=== PATIENT | male | born 1955 | race Caucasian/White ===

== ENCOUNTER → 2019-10-13 09:41 | Outpatient (BNVA) | payer BC, SELFPAY | PROVIDERS: PCP Registered Nurse; Visit Provider Registered Nurse | DX: E11.9 Type 2 diabetes mellitus without complications (principal); I10 Essential (primary) hypertension; E78.5 Hyperlipidemia, unspecified; E78.2 Mixed hyperlipidemia | CPT/HCPCS: 80053; 80061; 82044; 83721; 85025 ==

== ENCOUNTER → 2019-10-23 10:39 | Outpatient (BNVA) | payer BC, SELFPAY | PROVIDERS: PCP Registered Nurse; Visit Provider Nurse Practitioner Family | DX: E78.5 Hyperlipidemia, unspecified (principal); E11.9 Type 2 diabetes mellitus without complications; E78.2 Mixed hyperlipidemia | CPT/HCPCS: 83036 ==

== ENCOUNTER → 2020-04-08 09:32 | Outpatient (BNVA) | payer BC, SELFPAY | PROVIDERS: PCP Registered Nurse; Visit Provider Nurse Practitioner Family | DX: I10 Essential (primary) hypertension (principal); E11.9 Type 2 diabetes mellitus without complications; E78.5 Hyperlipidemia, unspecified | CPT/HCPCS: 80061; 83036; 83721 ==

== ENCOUNTER → 2020-07-18 10:02 | Outpatient (BNVA) | payer BC, SELFPAY | PROVIDERS: PCP Registered Nurse; Visit Provider Nurse Practitioner Family | DX: E78.5 Hyperlipidemia, unspecified (principal); I10 Essential (primary) hypertension; E11.9 Type 2 diabetes mellitus without complications; F32.9 Major depressive disorder, single episode, unspecified | CPT/HCPCS: 80053; 80061; 82043; 83036 ==

== ENCOUNTER → 2020-10-24 09:58 | Outpatient (BNVA) | payer BC, SELFPAY | PROVIDERS: PCP Registered Nurse; Visit Provider Nurse Practitioner Family | DX: E11.9 Type 2 diabetes mellitus without complications (principal) | CPT/HCPCS: 82043; 83036 ==

== ENCOUNTER → 2021-05-02 11:00 | Outpatient (BNVA) | payer BC, SELFPAY | PROVIDERS: PCP Nurse Practitioner Family; Visit Provider Nurse Practitioner Family | DX: E11.9 Type 2 diabetes mellitus without complications (principal); E78.5 Hyperlipidemia, unspecified; I10 Essential (primary) hypertension | CPT/HCPCS: 80053; 80061; 83036 ==

== ENCOUNTER → 2021-08-01 09:19 | Outpatient (BNVA) | payer BC, SELFPAY | PROVIDERS: PCP Nurse Practitioner Family; Visit Provider Nurse Practitioner Family | DX: E11.9 Type 2 diabetes mellitus without complications (principal); E78.5 Hyperlipidemia, unspecified; I10 Essential (primary) hypertension | CPT/HCPCS: 80053; 80061; 82043; 83036 ==

== ENCOUNTER → 2022-03-06 09:38 | Outpatient (BNVA) | payer BC, SELFPAY | PROVIDERS: PCP Nurse Practitioner Family; Visit Provider Nurse Practitioner Family | DX: E11.9 Type 2 diabetes mellitus without complications (principal); I10 Essential (primary) hypertension; E78.2 Mixed hyperlipidemia; R53.83 Other fatigue | CPT/HCPCS: 80053; 80061; 83036; 83721; 85025 ==

== ENCOUNTER → 2022-07-10 09:30 | Outpatient (BNVA) | payer BC, SELFPAY | PROVIDERS: PCP Nurse Practitioner Family; Visit Provider Nurse Practitioner Family | DX: I10 Essential (primary) hypertension (principal); E11.9 Type 2 diabetes mellitus without complications | CPT/HCPCS: 80053; 80061; 83036 ==

== ENCOUNTER → 2022-09-21 10:52 | Outpatient (BNVA) | payer BC, SELFPAY | PROVIDERS: PCP Nurse Practitioner Family; Visit Provider Nurse Practitioner Family | DX: M10.9 Gout, unspecified (principal) | CPT/HCPCS: 84550 ==

== ENCOUNTER → 2022-11-05 10:04 | Outpatient (BNVA) | payer BC, SELFPAY | PROVIDERS: PCP Nurse Practitioner Family; Visit Provider Nurse Practitioner Family | DX: M10.9 Gout, unspecified (principal) | CPT/HCPCS: 84550 ==

== ENCOUNTER 2022-12-09 12:01 | Outpatient (CLI) | payer BC, SELFPAY ==
--- NOTE | 2022-12-09 12:15 | US_ITS ---
WS: [id number] INDICATION: Palpable lump posterior LEFT neck TECHNIQUE: Ultrasound soft tissue area of concern FINDINGS: Ultrasound soft tissue area of concern posterior LEFT neck. Slightly heterogeneous tissue i n the area of concern posterior LEFT neck most compatible with benign lipoma. No other suspicious cys tic or solid lesions. US/US soft tissue head neck [id number] IMPRESSION: Suspected lipoma in the area of concern. This measures approximatel y 7.5 x 2.6 x 7.4 cm. No other suspicious findings.
== END 2022-12-09 12:02 | disposition home or self-care (01) ==
PROVIDERS: PCP Nurse Practitioner Family; Visit Provider Nurse Practitioner Family
DX: M79.89 Other specified soft tissue disorders (principal)
CPT/HCPCS: 76536

== ENCOUNTER → 2022-12-18 09:53 | Outpatient (BNVA) | payer BC, SELFPAY | PROVIDERS: PCP Nurse Practitioner Family; Visit Provider Nurse Practitioner Family | DX: E78.5 Hyperlipidemia, unspecified (principal); E11.9 Type 2 diabetes mellitus without complications; I10 Essential (primary) hypertension; M79.89 Other specified soft tissue disorders; E78.2 Mixed hyperlipidemia | CPT/HCPCS: 80053; 80061; 83036 ==

== ENCOUNTER → 2023-02-26 10:16 | Outpatient (BNVA) | payer BC, SELFPAY | PROVIDERS: PCP Nurse Practitioner Family; Visit Provider Nurse Practitioner Family | DX: E11.9 Type 2 diabetes mellitus without complications (principal) | CPT/HCPCS: 83036 ==

== ENCOUNTER 2023-06-23 06:58 | Day surgery (SDC) | payer BC, SELFPAY ==
[2023-06-23] MEDS: sodium chloride 0.9% 1,000 ML 30 ML IV (07:25)
[2023-06-23 07:29] VITALS: BP 150/69; PULSE 81; RESP 18; TEMP 36.4; O2SAT 99; BMI 34.2
[2023-06-23 07:31] LABS: Glucose Point of Care 172 mg/dL (70-110)
--- NOTE | 2023-06-23 07:50 | ANES.PREANE2 ---
Pre-Anesthetic Assessment Height/Weight: Height 1.85 m Weight 117.934 kg Temp Pulse Resp BP Pulse Ox O2 Del Method 97.6 F 81 18 150/69 99 Room Air 06/23/23 07:29 06/23/23 07:29 06/23/23 07:29 06/23/23 07:29 06/23/23 07:29 06/23/23 07:29 Preop Diagnosis: Screening Operation Date: 06/23/23 08:15 Proposed Procedures p 55154 colon G0121 screen colon A risk Z12.11(Not Applicable) - Seun Lloyd DO Familial anesthetic complications: None Was Beta Espinoza taken within 24 hours: N/A Was Clonidine taken within 24 hours: N/A Last intake: Intake Last Liquid Date 06/22/23 Last Liquid Time 22:00 Last Solid Date 06/21/23 Last Solid Time 18:00 Social No alcohol and No tobacco Exam alert, oriented x 3, clear to auscultation bilaterally and regular rate & rhythm Airway Submandibular: within normal limits Cervical ROM: within normal limits Mallampati: Class III Dentition: false (Upper dentures) History/ROS No significant history except as noted and No significant complaints Pulmonary Exertional Dyspnea and Sleep Apnea CV/HEM Has had a heart issue since childhood but unable to name the issue. 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 None reported Hepatic None reported GI Gastroesophageal Reflux Disease (Rarely, none this morning) Metabolic Diabetes Mellitus, Hyperlipidemia and Morbid Obesity Musc/skel Lower Back Pain and Osteoarthritis/DJD Neuropsych Neuropathy Anesthetic Plan ASA status: 3 Anesthesia: Anesthesia Evaluation, General and MAC Risk of > 500 ml blood loss (7ml/kg in children): No Medications/Allergies Home Medications Medication Instructions Recorded Confirmed Last Taken Type ferrous sulfate 325 mg (65 mg 325 mg PO ONCE 07/03/19 06/23/23 06/21/23 History iron) tablet glucosamine HCl 1,500 mg tablet 1,500 mg PO DAILY 07/03/19 06/23/23 06/21/23 History multivitamin (Daily Multi-Vitamin 1 tab PO QAM 07/03/19 06/23/23 06/21/23 History tablet) omega-3 fatty acids 1,000 mg 1,000 mg PO BID 07/03/19 06/23/23 06/21/23 History capsule fluticasone propionate 50 1 spray intranasal DAILY #9.9 mL 09/14/19 06/23/23 06/21/23 Rx mcg/actuation nasal spray,suspension (Flonase Allergy Relief) niacin 500 mg tablet,extended 500 mg PO QAM #30 tabs 04/12/20 06/23/23 06/21/23 Rx release (Slo-Niacin) simvastatin 40 mg tablet See Rx Instructions .Route 06/15/23 06/23/23 06/21/23 Rx .COMPLEX #90 tabs allopurinol 100 mg tablet 1 mg PO DAILY 06/18/23 06/23/23 06/21/23 History glipizide 10 mg tablet 10 mg PO DAILY 06/18/23 06/23/23 06/21/23 History lisinopril 20 mg tablet 20 mg PO DAILY 06/18/23 06/23/23 06/21/23 History metformin 1,000 mg tablet 1,000 mg PO BID 06/18/23 06/23/23 06/22/23 History metformin 500 mg tablet 500 mg PO DAILY 06/18/23 06/23/23 06/21/23 History semaglutide 2 mg/dose (8 mg/3 mL) See Rx Instructions .Route .COMPLEX 06/18/23 06/23/23 06/16/23 History subcutaneous pen injector (Ozempic) venlafaxine 75 mg capsule,extended 75 mg PO DAILY 06/18/23 06/23/23 06/21/23 History release 24 hr Allergies Allergy/AdvReac Type Severity Reaction Status Date / Time No Known Allergies Allergy Verified 06/23/23 07:13 Current Medications Generic Name Dose Route Start Last Admin Trade Name Freq PRN Reason Stop Dose Admin Sodium Chloride 1,000 mls @ 30 mls/hr 06/23/23 07:15 06/23/23 07:25 Sodium Chloride 0.9% IV 06/24/23 07:14 30 mls/hr .Q24H MARIANNE Administration PFSH Anesthesia Medical History Diabetes History of nonmelanoma skin cancer Hyperlipidemia Hypertension Surgical History No pertinent past surgical history Family History Father CAD (coronary artery disease) Cancer Lung disease Mother Stroke Grandfather Diabetes Social History Smoking and tobacco/nicotine status: never used tobacco/nicotine Alcohol intake: never Substance/Drug Use: never Adopted: No Household members: spouse Data Anesthesia Cardiac Studies: No Data to Display
--- NOTE | 2023-06-23 08:33 | PM.HP ---
Providers/Chief Complaint Primary Care Provider: GEORGE Gann Chief Complaint: 14493 Z12.11 History of Present Illness Juanjose Leahy is a 67 year old male here for screening colonoscopy Review of Systems General: Reports: 10 or more systems reviewed and unremarkable except in HPI and below Medications/Allergies Home Medications Medication Instructions Recorded Confirmed Last Taken Type ferrous sulfate 325 mg (65 mg 325 mg PO ONCE 07/03/19 06/23/23 06/21/23 History iron) tablet glucosamine HCl 1,500 mg tablet 1,500 mg PO DAILY 07/03/19 06/23/23 06/21/23 History multivitamin (Daily Multi-Vitamin 1 tab PO QAM 07/03/19 06/23/23 06/21/23 History tablet) omega-3 fatty acids 1,000 mg 1,000 mg PO BID 07/03/19 06/23/23 06/21/23 History capsule fluticasone propionate 50 1 spray intranasal DAILY #9.9 mL 09/14/19 06/23/23 06/21/23 Rx mcg/actuation nasal spray,suspension (Flonase Allergy Relief) niacin 500 mg tablet,extended 500 mg PO QAM #30 tabs 04/12/20 06/23/23 06/21/23 Rx release (Slo-Niacin) simvastatin 40 mg tablet See Rx Instructions .Route 06/15/23 06/23/23 06/21/23 Rx .COMPLEX #90 tabs allopurinol 100 mg tablet 1 mg PO DAILY 06/18/23 06/23/23 06/21/23 History glipizide 10 mg tablet 10 mg PO DAILY 06/18/23 06/23/23 06/21/23 History lisinopril 20 mg tablet 20 mg PO DAILY 06/18/23 06/23/23 06/21/23 History metformin 1,000 mg tablet 1,000 mg PO BID 06/18/23 06/23/23 06/22/23 History metformin 500 mg tablet 500 mg PO DAILY 06/18/23 06/23/23 06/21/23 History semaglutide 2 mg/dose (8 mg/3 mL) See Rx Instructions .Route .COMPLEX 06/18/23 06/23/23 06/16/23 History subcutaneous pen injector (Ozempic) venlafaxine 75 mg capsule,extended 75 mg PO DAILY 06/18/23 06/23/23 06/21/23 History release 24 hr Allergies Allergy/AdvReac Type Severity Reaction Status Date / Time No Known Allergies Allergy Verified 06/23/23 07:13 PFSH Acute PFSH: Medical History Diabetes History of nonmelanoma skin cancer Hyperlipidemia Hypertension Surgical History No pertinent past surgical history Family History Father CAD (coronary artery disease) Cancer Lung disease Mother Stroke Grandfather Diabetes Social History Smoking and tobacco/nicotine status: never used tobacco/nicotine Alcohol intake: never Substance/Drug Use: never Adopted: No Household members: spouse Vitals/I&O/Wt Last Vital Signs Temp 97.6 F 06/23/23 07:29 Pulse 81 06/23/23 07:29 Resp 18 06/23/23 07:29 BP 150/69 06/23/23 07:29 Pulse Ox 99 06/23/23 07:29 O2 Del Method Room Air 06/23/23 07:29 Weight last 48 hrs Weight 260 lb A&P Assessment and plan (1) Screening for colon cancer: Plan Colonoscopy Attestations Medical Necessity Statement*: Home Coding Level of Care Code Acute Code for Chg Fwd Diagnoses Screening for colon cancer Z12.11
[2023-06-23 09:13] VITALS: BP 118/75; PULSE 78; RESP 16; TEMP 36.2; O2SAT 96
[2023-06-23 09:24] VITALS: BP 118/71; PULSE 71; RESP 16; O2SAT 92
[2023-06-23 09:30] VITALS: BP 111/74; PULSE 78; RESP 18; O2SAT 97
--- NOTE | 2023-06-23 16:33 | ANE.PACU2 ---
Inpatient post-anesthesia follow up: Airway intact: Yes Vital signs: Temperature 97.1 F Pulse Rate 78 Respiratory Rate 18 Blood Pressure 111/74 Pulse Oximetry 97 Oxygen Delivery Me thod Room Air Oxygen Flow Rate Fraction of Inspir ed Oxygen Hydration adequate: Yes Nausea and vomiting: No Pain level: 2 Mental status: Baseline
--- NOTE | 2024-01-19 11:21 | XRR_ITS ---
PROCEDURE INFORMATION: Exam: XR Left Ankle Exam date and time: 01/19/2024 11:37 AM Age: 68 years old Clinical indication: Left; Patient HX: No specific injury, 3 weeks, swollen, pain on medial side of ankle. ; Additional info: M25.572 - pain in left ankle and joints of left foot TECHNIQUE: Imaging protocol: Radiologic exam of the left ankle. Views: 3 or more views. COMPARISON: No relevant prior studies available. FINDINGS: Bones/joints: Normal. Achilles spur. Soft tissues: Normal. XR/XR ankle LT min 3V* [id number] IMPRESSION: No acute bony abnormality.
== END 2023-06-23 09:56 | disposition home or self-care (01) ==
LOC: GILAB 09:26 → RAD 01-19 11:17
PROVIDERS: PCP Nurse Practitioner Family; Visit Provider Surgery
PROC: 0DJD8ZZ Inspection of Lower Intestinal Tract, Via Natural or Artificial Opening Endoscopic (ICD-10-PCS; CPT 45378; principal; 2023-06-23 08:15)
DX: Z12.11 Encounter for screening for malignant neoplasm of colon (principal); D12.5 Benign neoplasm of sigmoid colon; D12.3 Benign neoplasm of transverse colon; E11.40 Type 2 diabetes mellitus with diabetic neuropathy, unspecified; Z79.84 Long term (current) use of oral hypoglycemic drugs; E78.5 Hyperlipidemia, unspecified; I10 Essential (primary) hypertension; Z85.828 Personal history of other malignant neoplasm of skin; G47.30 Sleep apnea, unspecified; E66.01 Morbid (severe) obesity due to excess calories; Z68.34 Body mass index [BMI] 34.0-34.9, adult; M25.572 Pain in left ankle and joints of left foot
CPT/HCPCS: 36416; 45385; 73610; 82962; 88305; J2704; J7030

== ENCOUNTER → 2023-07-07 10:51 | Outpatient (BNVA) | payer BC, SELFPAY | PROVIDERS: PCP Nurse Practitioner Family; Visit Provider Nurse Practitioner Family | DX: E78.2 Mixed hyperlipidemia (principal); E11.9 Type 2 diabetes mellitus without complications; I10 Essential (primary) hypertension; M10.9 Gout, unspecified; Z79.899 Other long term (current) drug therapy; M1A.09X0 Idiopathic chronic gout, multiple sites, without tophus (tophi) | CPT/HCPCS: 80053; 80061; 83036; 84550; 85025 ==

== ENCOUNTER → 2023-12-01 09:14 | Outpatient (BNVA) | payer BC, SELFPAY | PROVIDERS: PCP Nurse Practitioner Family; Visit Provider Nurse Practitioner Family | DX: E11.9 Type 2 diabetes mellitus without complications (principal); M1A.09X0 Idiopathic chronic gout, multiple sites, without tophus (tophi); E78.2 Mixed hyperlipidemia | CPT/HCPCS: 80061; 83036; 83721; 84550 ==

== ENCOUNTER → 2024-01-10 11:52 | Outpatient (BNVA) | payer MEDICARE, SELFPAY | PROVIDERS: PCP Nurse Practitioner Family; Visit Provider Nurse Practitioner Family | DX: M1A.09X0 Idiopathic chronic gout, multiple sites, without tophus (tophi) (principal) | CPT/HCPCS: 84550 ==

== ENCOUNTER → 2024-01-18 10:24 | Outpatient (BNVA) | payer MEDICARE, SELFPAY | PROVIDERS: PCP Nurse Practitioner Family; Visit Provider Nurse Practitioner Family | DX: L57.8 Other skin changes due to chronic exposure to nonionizing radiation (principal); D22.4 Melanocytic nevi of scalp and neck; L81.4 Other melanin hyperpigmentation; L82.1 Other seborrheic keratosis; L57.0 Actinic keratosis; L82.0 Inflamed seborrheic keratosis; D36.15 Benign neoplasm of peripheral nerves and autonomic nervous system of abdomen; Z85.828 Personal history of other malignant neoplasm of skin | CPT/HCPCS: 17000; 17110; 99213 ==

== ENCOUNTER 2024-01-19 11:10 | Outpatient (CLI) | payer MEDICARE, SELFPAY | END 2024-01-19 11:11 | disposition home or self-care (01) | LOC: RAD 02-11 07:12 | PROVIDERS: PCP Nurse Practitioner Family; Visit Provider Nurse Practitioner Family | DX: M25.572 Pain in left ankle and joints of left foot (principal) | CPT/HCPCS: 73610 ==

== ENCOUNTER → 2024-06-01 11:01 | Outpatient (BNVA) | payer MEDICARE, SELFPAY | PROVIDERS: PCP Nurse Practitioner Family; Visit Provider Nurse Practitioner Family | DX: E11.9 Type 2 diabetes mellitus without complications (principal); R53.83 Other fatigue; I10 Essential (primary) hypertension; M1A.09X0 Idiopathic chronic gout, multiple sites, without tophus (tophi); Z79.899 Other long term (current) drug therapy | CPT/HCPCS: 80053; 80061; 83036; 83721; 84550; 85025 ==

== ENCOUNTER → 2024-09-01 09:39 | Outpatient (BNVA) | payer MEDICARE, SELFPAY | PROVIDERS: PCP Nurse Practitioner Family; Visit Provider Nurse Practitioner Family | DX: I10 Essential (primary) hypertension (principal); E11.9 Type 2 diabetes mellitus without complications | CPT/HCPCS: 80053; 80061; 83036; 83721 ==

== ENCOUNTER → 2024-09-19 09:05 | Outpatient (BNVA) | payer MEDICARE, SELFPAY | PROVIDERS: PCP Nurse Practitioner Family; Visit Provider Nurse Practitioner Family | DX: L57.8 Other skin changes due to chronic exposure to nonionizing radiation (principal); D22.4 Melanocytic nevi of scalp and neck; L81.4 Other melanin hyperpigmentation; L82.1 Other seborrheic keratosis; D36.15 Benign neoplasm of peripheral nerves and autonomic nervous system of abdomen; Z08 Encounter for follow-up examination after completed treatment for malignant neoplasm; Z85.828 Personal history of other malignant neoplasm of skin; L57.0 Actinic keratosis | CPT/HCPCS: 17000; 99213 ==

== ENCOUNTER → 2025-03-06 10:53 | Outpatient (BNVA) | payer MEDICARE, SELFPAY | PROVIDERS: PCP Nurse Practitioner Family; Visit Provider Nurse Practitioner Family | DX: Z11.52 Encounter for screening for COVID-19 (principal) | CPT/HCPCS: 87426 ==

== ENCOUNTER → 2025-03-08 10:37 | Outpatient (BNVA) | payer MEDICARE, SELFPAY | PROVIDERS: PCP Nurse Practitioner Family; Visit Provider Nurse Practitioner Family | DX: L72.0 Epidermal cyst (principal); L57.8 Other skin changes due to chronic exposure to nonionizing radiation; D22.4 Melanocytic nevi of scalp and neck; L81.4 Other melanin hyperpigmentation; L57.0 Actinic keratosis | CPT/HCPCS: 17000; 99213 ==

== ENCOUNTER → 2025-04-09 11:23 | Outpatient (BNVA) | payer MEDICARE, SELFPAY | PROVIDERS: PCP Nurse Practitioner Family; Visit Provider Nurse Practitioner Family | DX: Z79.899 Other long term (current) drug therapy (principal); M1A.09X0 Idiopathic chronic gout, multiple sites, without tophus (tophi) | CPT/HCPCS: 83036; 84550 ==